=== PATIENT | male | born 1970 | race Caucasian/White ===

== ENCOUNTER 2016-09-17 10:26 | Outpatient (CLI) | END 2016-09-17 10:27 | disposition home or self-care (01) | LOC: LAB 10:26 | PROVIDERS: ATTEND Nurse Practitioner Family | DX: R31.9 Hematuria, unspecified (principal); R39.15 Urgency of urination | CPT/HCPCS: 36415 ==

== ENCOUNTER 2017-01-20 17:46 | Outpatient (CLI) ==
--- NOTE | 2017-01-20 18:33 | DI ---
EXAM: Right hand three view. Three view. HISTORY: Pain. Pain and right middle finger and fifth finger. COMPARISON: None. FINDINGS: AP, lateral and oblique views of the right hand. There are no acute or healing fractures . There are no lytic or blastic lesions. Soft tissues are normal. Bone mineralization is normal. There are no significant degenerative changes. IMPRESSION: Normal right hand.
== END 2017-01-20 17:47 | disposition home or self-care (01) ==
LOC: RAD 17:46
PROVIDERS: ATTEND Nurse Practitioner Family
DX: M79.644 Pain in right finger(s) (principal)